=== PATIENT | female | born 1955 | race Two or more races ===

== ENCOUNTER 2021-09-12 07:55 | Outpatient (CLI) | payer OTHER | END 2021-09-12 08:03 | disposition home or self-care (01) | LOC: SONOGRAMA 07:55 | PROVIDERS: ATTEND Pathology Anatomic Pathology & Clinical Pathology | DX: E04.2 Nontoxic multinodular goiter (principal) ==

== ENCOUNTER 2022-04-28 08:57 | Outpatient (CLI) | payer OTHER | END 2022-04-28 09:08 | disposition home or self-care (01) | LOC: EDBD 08:57 → MAMO-SONO 08:57 | PROVIDERS: ATTEND Obstetrics & Gynecology Obstetrics | DX: Z12.31 Encounter for screening mammogram for malignant neoplasm of breast (principal); N64.4 Mastodynia; E04.2 Nontoxic multinodular goiter ==

== ENCOUNTER 2023-07-14 09:36 | Outpatient (CLI) | payer OTHER | END 2023-07-14 09:41 | disposition home or self-care (01) | LOC: SONOGRAMA 09:36 | PROVIDERS: ATTEND Internal Medicine Gastroenterology | DX: R10.11 Right upper quadrant pain (principal) ==

== ENCOUNTER 2023-07-31 09:26 | Outpatient (CLI) | payer OTHER | END 2023-07-31 09:27 | disposition home or self-care (01) | LOC: NUCLEAR 09:26 | PROVIDERS: ATTEND Internal Medicine Gastroenterology | DX: R10.11 Right upper quadrant pain (principal) | CPT/HCPCS: 78227; A9537; J2805 ==

== ENCOUNTER 2023-08-19 08:25 | Outpatient (CLI) | payer OTHER | END 2023-08-19 08:31 | disposition home or self-care (01) | LOC: SONOGRAMA 08:25 | PROVIDERS: ATTEND Internal Medicine | DX: R16.1 Splenomegaly, not elsewhere classified (principal) ==

== ENCOUNTER 2024-05-11 13:12 | Outpatient (CLI) | payer OTHER | END 2024-05-11 13:23 | disposition home or self-care (01) | LOC: MAMO-SONO 13:12 | PROVIDERS: ATTEND Obstetrics & Gynecology Obstetrics | DX: N64.4 Mastodynia (principal); Z12.31 Encounter for screening mammogram for malignant neoplasm of breast ==

== ENCOUNTER 2024-06-01 10:14 | Outpatient (CLI) | payer OTHER | END 2024-06-01 10:22 | disposition home or self-care (01) | LOC: SONOGRAMA 10:14 | PROVIDERS: ATTEND Otolaryngology | DX: E04.2 Nontoxic multinodular goiter (principal) ==

== ENCOUNTER 2024-09-08 08:44 | Outpatient (CLI) | payer OTHER | END 2024-09-08 08:46 | disposition home or self-care (01) | LOC: SONOGRAMA 08:44 | PROVIDERS: ATTEND Internal Medicine Gastroenterology | DX: R10.11 Right upper quadrant pain (principal) ==

== ENCOUNTER 2025-04-21 13:55 | Outpatient (CLI) | payer OTHER | END 2025-04-21 14:05 | disposition home or self-care (01) | LOC: MRI 13:55 | DX: M25.551 Pain in right hip (principal) ==

== ENCOUNTER 2025-05-08 13:35 | Outpatient (CLI) | payer OTHER | END 2025-05-08 13:46 | disposition home or self-care (01) | LOC: MRI 13:35 | PROVIDERS: ATTEND General Practice | DX: M25.551 Pain in right hip (principal) | CPT/HCPCS: 73721 ==

== ENCOUNTER 2025-07-11 11:06 | Outpatient (CLI) | payer OTHER | END 2025-07-11 11:08 | disposition home or self-care (01) | LOC: MAMO-SONO 11:06 | PROVIDERS: ATTEND Obstetrics & Gynecology Obstetrics | DX: N64.4 Mastodynia (principal); Z12.31 Encounter for screening mammogram for malignant neoplasm of breast; E04.2 Nontoxic multinodular goiter ==